=== PATIENT | female | born 1960 | race Caucasian/White ===

== ENCOUNTER 2018-10-10 00:05 | Emergency (ER) | payer BC, OTHER ==
[~2018-10-10] VITALS: Ht 165.1 cm; Wt 63.5 kg
[2018-10-10 00:10] VITALS: BP_SYST 170
--- NOTE | 2018-10-10 00:15 | NUR ---
0015 - Pt states she started feeling throat swelling at 2230 on the left side. pt states she thinks she is having an allergic reaction, but unsure what she is allergic to. states she has never had this happen before, but for the last few months she will occasionally get hive-like welts on forehead and lips at random times. pt is A&OX4, resp even and unlabored, voice sounds hoarse. pt states she tried to take a benadryl at 2315 but states she feels like it became stuck in her throat. pt tolerating secretions w/o difficulty. has family with her.
--- NOTE | 2018-10-10 01:48 | NUR ---
0148 - Patient to ER bed 4 to go for evaluation. Side rails up. Report given to BENY Sanchez.
--- NOTE | 2018-10-10 02:33 | NUR ---
0233 - ER Dr. Aguayo at bedside examining patient.
[2018-10-10] MEDS ORDERED: methylPREDNISolone SOD SUCC/PF 62.5 MG/ML VIAL IVP ONE (02:45)
[2018-10-10 03:20] LABS: CALCIUM 8.7 mg/dL (8.4-11.0); CREATININE 0.66 mg/dL (0.55-1.30); HEMOGLOBIN 14.3 g/dL (12.0-16.0); POTASSIUM 3.3 mmol/L (3.5-5.1); RED BLOOD CELL COUNT(AUTO) 4.52 MIL/uL (4.2-6.2); WHITE BLOOD COUNT (AUTO) 7.8 K/uL (4.8-10.8)
[2018-10-10 03:21] LABS: HEMATOCRIT 41.5 % (36-48); MEAN CORPUSCULAR HEMOGLOBIN 32 pg (27-31); MEAN CORPUSCULAR HGB CONC 34 % (32-36); MEAN CORPUSCULAR VOLUME 92 fL (79.0-98.0); PLATELET COUNT (AUTO) 205 K/uL (130-430); RED CELL DISTRIBUTION WIDTH 12.6 % (9.0-15.0)
[2018-10-10 03:22] LABS: BASOPHILS # (AUTO) 0.1 K/uL (0.0-0.2); EOSINOPHILS # (AUTO) 0.2 K/uL (0.0-0.4); EOSINOPHILS % (AUTO) 2.8 % (0.0-4.0); LYMPHOCYTES # (AUTO) 2.3 K/uL (1.0-5.5); LYMPHOCYTES % (AUTO) 29.5 % (20.5-51.5); MONOCYTES # (AUTO) 0.6 K/uL (0.0-1.0); MONOCYTES % (AUTO) 7.7 % (1.7-9.3); NEUTROPHILS # (AUTO) 4.6 K/uL (1.8-7.7)
[2018-10-10 03:26] LABS: ALBUMIN 3.5 g/dL (3.4-4.8); TOTAL BILIRUBIN 0.4 mg/dL (0.0-1.0)
[2018-10-10 04:20] VITALS: BP_SYST 147
== END 2018-10-10 04:20 | disposition home or self-care (01) ==
LOC: SED 00:05
DX: T78.2XXA Anaphylactic shock, unspecified, initial encounter (principal); Z88.8 Allergy status to other drugs, medicaments and biological substances
CPT/HCPCS: 36415; 71045; 80053; 85025; 96372; 99284; J2930